=== PATIENT | female | born 1940 | race Caucasian/White ===

== ENCOUNTER 2019-09-15 16:00 | Observation (INO) ==
[2019-09-15] MEDS ORDERED: Aspirin 325 MG TABLET PO ONE (16:12)
[2019-09-15 16:37] LABS: Basophils % 0.2 %; Eosinophils # 0.3 K/mcL (0.0-0.6); Eosinophils % 3.2 %; Hematocrit 34.9 % (35.3-44.9); Hemoglobin 11.5 g/dL (11.5-15.4); Immature Granulocytes % 0.3 % (0-4); Lymphocytes # 1.5 K/mcL (0.6-4.6); Lymphocytes % 15.2 %; Mean Corpuscular Hemoglobin 31.5 pg (28.0-33.3); Mean Corpuscular Volume 95.6 fL (83.0-100.0); Mean Platelet Volume 10.8 fL (9.4-12.4); Monocytes # 0.8 K/mcL (0.0-1.3); Monocytes % 7.6 %; Neutrophils # 7.4 K/mcL (1.6-8.9); Platelet Count 173 K/mcL (140-400); Red Blood Count 3.65 M/mcL (3.82-4.97); Segmented Neutrophils % 73.5 %; White Blood Count 10.1 K/mcL (4.3-11.1)
[2019-09-15] MEDS ORDERED: Naloxone 0.4 MG/ML INJ IVP PRN (18:43)
[2019-09-15] MEDS ORDERED: Mag Hydrox/Al Hydrox/Simeth 30 ML UDC PO PRN (18:43)
[2019-09-15] MEDS ORDERED: Ondansetron ODT 4 MG TAB.RAPDIS SL PRN (18:43)
[2019-09-15] MEDS ORDERED: Acetaminophen 325 MG TABLET PO PRN (18:43)
[2019-09-15] MEDS ORDERED: MOM Conc 10 ML UD.LIQ PO PRN (18:43)
[2019-09-15] MEDS ORDERED: ALPRAZolam 0.25 MG TABLET PO PRN (18:47)
[2019-09-15] MEDS ORDERED: Sennosides 8.6 MG TABLET PO PRN (18:47)
[2019-09-15] MEDS ORDERED: Nitroglycerin 0.4 MG TAB.SUBL SL PRN (18:47)
[2019-09-15 19:07] LABS: BUN/Creatinine Ratio 24 (6-26); Blood Urea Nitrogen 50 mg/dL (8-23); Calcium 9.3 mg/dL (8.6-10.3); Carbon Dioxide 25 mEq/L (23-29); Chloride 102 mEq/L (98-107); Glucose 123 mg/dL (70-105); Osmolality,Calculated 299 (280-300); Potassium 4.1 mEq/L (3.5-5.1); Sodium 137 mEq/L (136-145); eGFR For African Americans 28 (> 60); eGFR For Non-African Americans 23 (> 60)
[2019-09-15 19:08] LABS: Troponin I < 0.03 ng/mL (< 0.04)
[2019-09-15] MEDS ORDERED: 0.9 % Sodium Chloride 500 ML IVC SCH (19:15)
[2019-09-15] MEDS: Aspirin Enteric Coated 81 MG Tablet PO SCH (21:01)
[2019-09-15] MEDS: Azithromycin 250 MG TABLET PO SCH (21:01)
[2019-09-15] MEDS: hydrALAZINE 25 MG TABLET PO SCH (21:01)
[2019-09-15] MEDS: Melatonin 3 MG TABLET PO SCH (21:01)
[2019-09-15] MEDS: Gabapentin 100 MG CAPSULE PO SCH (21:01)
[2019-09-15] MEDS: Apixaban 5 MG TABLET PO SCH (21:01)
[2019-09-15 22:43] LABS: Adenovirus Not Detected (Not Detect); Bordetella Pertussis Not Detected (Not Detect); Chlamydophila pneumoniae Not Detected (Not Detect); Coronavirus 229E Not Detected (Not Detect); Coronavirus HKU1 Not Detected (Not Detect); Coronavirus NL63 Not Detected (Not Detect); Coronavirus OC43 Not Detected (Not Detect); Human Metapneumovirus Not Detected (Not Detect); Human Rhinovirus/Enterovirus Not Detected (Not Detect); Influenza A Subtype 2009 H1 Not Detected (Not Detect); Influenza B Not Detected (Not Detect); Mycoplasma pneumoniae Not Detected (Not Detect); Parainfluenza Virus 1 Not Detected (Not Detect); Parainfluenza Virus 2 Not Detected (Not Detect); Parainfluenza Virus 3 Not Detected (Not Detect); Parainfluenza Virus 4 Not Detected (Not Detect); Respiratory Syncytial Virus Not Detected (Not Detect)
[2019-09-16 02:34] LABS: Hematocrit 34.4 % (35.3-44.9); Mean Corpuscular Hemoglobin 31.6 pg (28.0-33.3); Mean Corpuscular Volume 98.9 fL (83.0-100.0); Mean Platelet Volume 10.9 fL (9.4-12.4); Platelet Count 161 K/mcL (140-400); Red Blood Count 3.48 M/mcL (3.82-4.97); White Blood Count 10.6 K/mcL (4.3-11.1)
[2019-09-16 02:56] LABS: Chol/HDL Ratio 2.2 (0-4.9); Magnesium 1.7 mg/dL (1.6-2.6); Potassium 4.5 mEq/L (3.5-5.1)
[2019-09-16 08:39] LABS: Bilirubin,Urine Negative (Negative); Blood,Urine Negative (Negative); Clarity,Urine Cloudy (Clear); Color,Urine Yellow (Yellow); Glucose,Urine (UA) Normal (Normal); Ketones,Urine Negative (Negative); Leukocyte Esterase,Urine Moderate (Negative); Nitrite,Urine Negative (Negative); Protein,Urine 30 mg/dL (Neg-Trace); Specific Gravity,Urine 1.016 (1.010-1.025); Urobilinogen,Urine Normal (Normal)
[2019-09-16 08:42] LABS: Bacteria,Urine Moderate per hpf (None-Few); Hyaline Casts,Urine None Seen per lpf (None-Few); RBC,Urine 0-3 per hpf (0-3); Squamous Epithelial Cell,Urine Many per lpf (None-Few); WBC,Urine 50-100 per hpf (0-3)
[2019-09-16] MEDS ORDERED: Isosorbide MONOnitrate (24 HR) 30 MG TAB.ER.24H PO SCH (09:00)
[2019-09-16] MEDS ORDERED: 0.9 % Sodium Chloride 1,000 ML IVC SCH (09:15)
[2019-09-16] MEDS: Apixaban 5 MG TABLET PO SCH ×2 (10:15→20:57)
[2019-09-16] MEDS: hydrALAZINE 25 MG TABLET PO SCH ×2 (10:16→20:57)
[2019-09-16] MEDS: Cholecalciferol (D-3) 1,000 UNIT (25MCG) TABLET PO SCH (10:16)
[2019-09-16] MEDS ORDERED: Cefepime HCl 1,000 MG in Water for inj. (sterile) 10 ML IVP SCH (11:00)
[2019-09-16] MEDS: Cefepime HCl 1,000 MG in Water for inj. (sterile) 10 ML IVP SCH (16:37)
[2019-09-16] MEDS: Azithromycin 250 MG TABLET PO SCH (16:38)
[2019-09-16] MEDS: Aspirin Enteric Coated 81 MG Tablet PO SCH (20:57)
[2019-09-16] MEDS: Melatonin 3 MG TABLET PO SCH (20:57)
[2019-09-16] MEDS: Gabapentin 100 MG CAPSULE PO SCH (20:57)
[2019-09-17 06:11] LABS: Vancomycin,Random < 2 mcg/mL
[2019-09-17 06:32] LABS: BUN/Creatinine Ratio 22 (6-26); Blood Urea Nitrogen 44 mg/dL (8-23); Calcium 8.9 mg/dL (8.6-10.3); Carbon Dioxide 24 mEq/L (23-29); Chloride 108 mEq/L (98-107); Glucose 94 mg/dL (70-105); Osmolality,Calculated 299 (280-300); Potassium 4.3 mEq/L (3.5-5.1); Sodium 139 mEq/L (136-145); eGFR For African Americans 30 (> 60); eGFR For Non-African Americans 25 (> 60)
[2019-09-17] MEDS ORDERED: 0.9 % Sodium Chloride 1,000 ML IVC SCH (08:30)
[2019-09-17] MEDS: Cholecalciferol (D-3) 1,000 UNIT (25MCG) TABLET PO SCH (10:50)
[2019-09-17] MEDS: Isosorbide MONOnitrate (24 HR) 30 MG TAB.ER.24H PO SCH (10:50)
[2019-09-17] MEDS: hydrALAZINE 25 MG TABLET PO SCH ×2 (10:50→22:31)
[2019-09-17] MEDS: Apixaban 5 MG TABLET PO SCH ×2 (10:50→22:31)
[2019-09-17] MEDS: Cefepime HCl 1,000 MG in Water for inj. (sterile) 10 ML IVP SCH (17:44)
[2019-09-17] MEDS: Azithromycin 250 MG TABLET PO SCH (17:44)
[2019-09-17] MEDS: Gabapentin 100 MG CAPSULE PO SCH (22:31)
[2019-09-17] MEDS: Aspirin Enteric Coated 81 MG Tablet PO SCH (22:31)
[2019-09-17] MEDS: Melatonin 3 MG TABLET PO SCH (22:31)
[2019-09-18 04:20] LABS: Hematocrit 30.6 % (35.3-44.9); Hemoglobin 9.8 g/dL (11.5-15.4); Mean Corpuscular Hemoglobin 31.4 pg (28.0-33.3); Mean Corpuscular Volume 98.1 fL (83.0-100.0); Mean Platelet Volume 10.6 fL (9.4-12.4); Platelet Count 166 K/mcL (140-400); Red Blood Count 3.12 M/mcL (3.82-4.97); Red Cell Distribution Width 13.7 % (11.5-14.5); White Blood Count 8.6 K/mcL (4.3-11.1)
[2019-09-18 04:46] LABS: Calcium 8.8 mg/dL (8.6-10.3); Potassium 4.1 mEq/L (3.5-5.1)
[2019-09-18] MEDS: hydrALAZINE 25 MG TABLET PO SCH (08:43)
[2019-09-18] MEDS: Isosorbide MONOnitrate (24 HR) 30 MG TAB.ER.24H PO SCH (08:43)
[2019-09-18] MEDS: Cholecalciferol (D-3) 1,000 UNIT (25MCG) TABLET PO SCH (08:44)
[2019-09-18] MEDS: Apixaban 5 MG TABLET PO SCH (08:44)
[2019-09-18 15:05] VITALS: BP 99/64
[2019-09-18] MEDS ORDERED: Aminoglycoside Consult 1 EACH MC ONE (16:57)
[2019-09-19] MEDS ORDERED: Doxycycline 100 MG CAPSULE PO SCH (09:00)
[2019-09-19] MEDS ORDERED: levoFLOXacin 750 MG TABLET PO SCH (09:00)
== END 2019-09-18 16:58 | disposition home or self-care (01) ==
LOC: EMEROOARM 16:00 → 3BNU 16:00 → SUATTDRO 18:50 → 3BNU 20:06
PROVIDERS: ADMIT Internal Medicine; ATTEND Internal Medicine